=== PATIENT | female | born 1975 | race Caucasian/White ===

== ENCOUNTER 2021-05-06 11:28 | Outpatient (CLI) | payer OTHER, SELFPAY ==
--- NOTE | ~2021-05-06 | XR_ITS ---
XR foot RT min 3V DATE: 05/06/2021 11:57 INDICATION: Diffuse right foot pain for entire life TECHNIQUE: 4 views COMPARISON: None FINDINGS: Diffuse osteopenia. No fracture, dislocation, periosteal reaction or malignant bone destruction is evident. There is minimal posterior calcaneal enthesopathy. No erosive change is evident. IMPRESSION: Osteopenia Minimal posterior calcaneal enthesopathy Reviewed, dictated and finalized at location A. TRICAL HELPER
[2021-05-06 12:02] LABS: Basophils Absolute Auto 0.04 K/mm3 (0.00-0.10); Basophils Percent Auto 0.4 % (0.0-1.0); Eosinophils Absolute Auto 0.09 K/mm3 (0.02-0.50); Hematocrit 47.9 % (35.0-49.0); Hemoglobin 15.8 g/dL (12.0-15.0); Immature Granulocyte Absolute 0.02 K/mm3 (0.00-0.00); Immature Granulocyte Percent A 0.2 % (0.0-0.0); Lymphocytes Absolute Auto 1.26 K/mm3 (1.10-4.50); Lymphocytes Percent Auto 13.9 % (18.0-42.0); Mean Corpuscular Hemoglobin 29.8 pg (27.0-31.0); Mean Corpuscular Volume 90.4 fL (78.0-102.0); Mean Platelet Volume 10.6 fl (9.2-11.8); Monocytes Absolute Auto 0.59 K/mm3 (0.10-0.90); Monocytes Percent Auto 6.5 % (2.0-11.0); Platelet Count Result 289 K/mm3 (150-420); Red Cell Distribution Width 12.4 % (11.6-14.4)
[2021-05-06 12:28] LABS: Alanine Aminotransferase 17 U/L (14-59); Albumin Level 3.9 g/dL (3.4-5.0); Alkaline Phosphatase 91 U/L (46-116); Anion Gap 7 mmol/L (8-16); Aspartate Amino Transferase 11 U/L (15-37); Bilirubin,Total 0.7 mg/dL (0.00-1.00); Blood Urea Nitrogen 12 mg/dL (7-18); Calcium 9.3 mg/dL (8.5-10.1); Carbon Dioxide 28 mmol/L (21-32); Chloride 105 mmol/L (98-108); Cholesterol 197 mg/dL (0-200); Estimated Glomerular Filt Rate > 60; Glucose 88 mg/dL (70-99); HDL Direct 75 mg/dL (40-60); LDL Cholesterol Calculated 113 mg/dL (<130); Osmolality Calculated 288 mOsm/kg (285-295); Potassium 4.5 mmol/L (3.5-5.1); Sodium 140 mmol/L (136-145); Thyroid Stimulating Hormone 1.82 uIU/mL (0.36-3.74); Total Protein 7.3 g/dL (6.4-8.2); Triglycerides 44 mg/dL (0-150)
== END 2021-05-06 11:29 | disposition home or self-care (01) ==
PROVIDERS: PCP Family Medicine; Visit Provider Emergency Medicine
DX: M79.671 Pain in right foot (principal); Q85.00 Neurofibromatosis, unspecified; Z13.220 Encounter for screening for lipoid disorders
CPT/HCPCS: 36415; 73630; 80053; 80061; 84443; 85025

== ENCOUNTER 2022-02-24 09:25 | Outpatient (CLI) | payer OTHER, SELFPAY ==
--- NOTE | ~2022-02-24 | XR_ITS ---
EXAM: XR_CERV2-3V_CR DATE: 02/24/2022 09:49 HISTORY: POSTERIOR NECK PAIN X 1 WEEK. HX OF NEUROFIBROMATOSIS. . COMPARISON: None available. FINDINGS: Craniocervical association and atlantoaxial joint are aligned. No prevertebral soft tissue swelling. Reversed lordosis centered at C6-7. Vertebral body heights are maintained. Moderate disc s pace narrowing and osteophytosis at C6-7. Mild multilevel facet arthropathy. IMPRESSION: Moderate degenerative disc disease at C6-7. Reviewed, dictated and finalized at location K. CLERK
== END 2022-02-24 09:26 | disposition home or self-care (01) ==
PROVIDERS: PCP Family Medicine; Visit Provider Physician Assistant
DX: M54.2 Cervicalgia (principal)
CPT/HCPCS: 72040